=== PATIENT | female | born 1945 | race Caucasian/White ===

== ENCOUNTER 2018-06-02 05:22 | Emergency (ER) | payer MEDICARE, OTHER ==
[~2018-06-02] VITALS: Ht 167.6 cm; Wt 86.2 kg
[~2018-06-02 05:22] MED LIST: ADVIL200 M1 PO; ASPIRIN EC81 MG PO; ATENOLOL25 MG PO; HYDROCHLOROTHIA25 MG PO; NORCO 5-325 TA1 EACH PO; POTASSIUM CHLO10 MEQ PO; PROZAC10 MG PO; ZITHROMAX250 MG PO
--- NOTE | 2018-06-02 12:39 | EKG ---
[facility] [address] [facility] [place], [place] [address] Signed Sinus bradycardia Otherwise normal ECG No previous ECGs available Confirmed by KEMAL MUSA DO ([id number]) on 06/02/2018 12:39:22 PM Electronically Signed By: KEMAL MUSA DO 06/02/18 1239 PATIENT NAME: GIOVANNY FIELDS Electrocardiogram DATE OF : 41 PHYSICIAN: KEMAL MUSA DO REPORT #: [id number] REPORT IS CONFIDENTIAL AND NOT TO BE RELEASED WITHOUT AUTHORIZATION
--- NOTE | 2018-06-02 12:39 | EKG ---
[facility] [address] [facility] [place], [place] [address] Signed Marked sinus bradycardia Abnormal ECG When compared with ECG of 02-JUN-2018 05:26, (Unconfirmed) No significant change was found Confirmed by KEMAL MUSA DO ([id number]) on 06/02/2018 12:39:34 PM Electronically Signed By: KEMAL MUSA DO 06/02/18 1239 PATIENT NAME: GIOVANNY FIELDS Electrocardiogram DATE OF : 41 PHYSICIAN: KEMAL MUSA DO REPORT #: [id number] REPORT IS CONFIDENTIAL AND NOT TO BE RELEASED WITHOUT AUTHORIZATION
== END 2018-06-02 07:20 | disposition home or self-care (01) ==
LOC: ED 05:22
DX: R07.2 Precordial pain (principal); I10 Essential (primary) hypertension; E11.9 Type 2 diabetes mellitus without complications; Z88.5 Allergy status to narcotic agent; Z79.899 Other long term (current) drug therapy; Z79.82 Long term (current) use of aspirin
CPT/HCPCS: 71045; 80053; 84484; 85025; 93005; 93010; 96374; 96375; 99285; J2060; J2270

== ENCOUNTER 2020-02-03 08:46 | Emergency (ER) | payer MEDICARE, OTHER | END 2020-02-03 09:10 | disposition left against medical advice (07) | LOC: ED 08:46 | DX: Z53.21 Procedure and treatment not carried out due to patient leaving prior to being seen by health care provider (principal) ==

== ENCOUNTER 2020-04-20 12:18 | Emergency (ER) | payer MEDICARE, OTHER ==
[~2020-04-20] VITALS: Ht 167.6 cm; Wt 86.2 kg
== END 2020-04-20 15:17 | disposition home or self-care (01) ==
LOC: ED 12:18
DX: R04.0 Epistaxis (principal); I10 Essential (primary) hypertension; Z86.73 Personal history of transient ischemic attack (TIA), and cerebral infarction without residual deficits; E11.9 Type 2 diabetes mellitus without complications; Z88.5 Allergy status to narcotic agent; Z79.899 Other long term (current) drug therapy; Z79.82 Long term (current) use of aspirin
CPT/HCPCS: 30903; 85025; 99283-25

== ENCOUNTER 2020-04-25 09:00 | Emergency (ER) | payer MEDICARE, OTHER ==
[~2020-04-25] VITALS: Ht 167.6 cm; Wt 88.5 kg
[~2020-04-25 09:00] MED LIST changes: +FENOFIBRATE160 MG PO; +LISINOPRIL40 MG PO
--- OUTSIDE RECORDS SUMMARY | 2020-04-25 09:02 | XMS ---
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 Details: LWBS CRITERIA MET - [facility] - 2 Visits in 30 Days CARE PROVIDERS There are no care providers on record at this time. Timothy has no Care Guidelines for this patient. E.DMamta V[facility] (12 MO.) [facility] TOTAL 5 NOTE: Visits indicate total known visits. ED/UCC VISIT TRACKING (12 MO.) 04/25/2020 09:01 [facility] [place] TYPE: Emergency COMPLAINT: - NOSE BLEED 04/24/2020 08:[address] [facility] [place] TYPE: Emergency COMPLAINT: - NOSE BLEED 04/20/2020 12:[address] [facility] [place] [place] TYPE: Emergency COMPLAINT: - NOSE BLEED DIAGNOSES: - Type 2 diabetes mellitus without complications - watermaster (current) use of aspirin - Other termite control technician (current) drug therapy - Epistaxis - Allergy status to narcotic agent status - Essential (primary) hypertension - Personal history of transient ischemic attack (TIA), and cere 02/03/2020 10:10 [facility] [place] TYPE: Emergency DIAGNOSES: - Strain of muscle, fascia and tendon at neck level, initial en - fall, head/neck pain - Unspecified injury of head, initial encounter - Closed Head Injury Without Loc 02/03/2020 08:[address] [facility] [place] TYPE: Emergency COMPLAINT: - HEAD INJURY DIAGNOSES: - Procedure and treatment not carried out due to patient leavin - Procedure and treatment not carried out due to patient leavin INPATIENT VISIT TRACKING (12 MO.) No inpatient visits to display in this time frame [email or web address]
[2020-04-25] MEDS ORDERED: NORCO 5-325 TA1 EACH PO (12:03)
== END 2020-04-25 12:16 | disposition home or self-care (01) ==
LOC: ED 09:00
DX: R04.0 Epistaxis (principal); I10 Essential (primary) hypertension; Z86.73 Personal history of transient ischemic attack (TIA), and cerebral infarction without residual deficits; E11.9 Type 2 diabetes mellitus without complications; Z88.5 Allergy status to narcotic agent; Z79.899 Other long term (current) drug therapy
CPT/HCPCS: 30903; 99283-25

== ENCOUNTER 2020-08-19 07:17 | Emergency (ER) | payer MEDICARE, OTHER ==
[~2020-08-19] VITALS: Ht 167.6 cm; Wt 88.5 kg
[~2020-08-19 07:17] MED LIST changes: -PROZAC10 MG PO; +PROZAC20 MG PO
--- OUTSIDE RECORDS SUMMARY | 2020-08-19 07:18 | XMS ---
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 Details: LWBS CRITERIA MET - [facility] - 2 Visits in 30 Days CARE PROVIDERS BRUNO CAMACHO [facility] 04/26/2020-Current PHONE: [phone] Timothy has no Care Guidelines for this patient. Care History Medical/Surgical 04/26/2020 [facility] - Patient is currently established with [facility]. If patient is seen in the ED during business hours. Please contact CHWs at [facility]. Care Recommendation: If this patient has had 5 or more Emergency Department visits in the last 12 months.\T\nbsp; Patient will require education on the scope and purpose of the ED as an acute care provider not a Primary Care Provider and should not be utilized for chronic conditions.\T\nbsp; These are guidelines and the provider should exercise clinical judgment when providing care. E.D. VISIT COUNT (12 MO.) [facility] TOTAL 7 NOTE: Visits indicate total known visits. ED/UCC VISIT TRACKING (12 MO.) 08/19/2020 07:[address] 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 [place] TYPE: Emergency COMPLAINT: - NOSE BLEED DIAGNOSES: - Type 2 diabetes mellitus without complications - Essential (primary) hypertension - Other superintendent container terminal (current) drug therapy - Epistaxis - Allergy status to narcotic agent - Personal history of transient ischemic attack (TIA), and cerebral infarction without residual deficits 04/20/2020 12:[address] [facility] [place] TYPE: Emergency COMPLAINT: - NOSE BLEED DIAGNOSES: - Type 2 diabetes mellitus without complications - superintendent container terminal (current) use of aspirin - Other superintendent container terminal (current) drug therapy - Epistaxis - Allergy status to narcotic agent - Essential (primary) hypertension - Personal history of transient ischemic attack (TIA), and cerebral infarction without residual deficits 02/03/2020 10:10 [facility] [place] TYPE: Emergency DIAGNOSES: - Strain of muscle, fascia and tendon at neck level, initial encounter - fall, head/neck pain - Unspecified injury of head, initial encounter - Closed Head Injury Without Loc 02/03/2020 08:46 OB[facility] [place] TYPE: Emergency COMPLAINT: - HEAD INJURY DIAGNOSES: - Procedure and treatment not carried out due to patient leaving prior to being seen by health care provider - Procedure and treatment not carried out due to patient leaving prior to being seen by health care provider INPATIENT VISIT TRACKING (12 MO.) No inpatient visits to display in this time frame [email or web address]
[2020-08-19] MEDS ORDERED: POTASSIUM CHLO20 ME1 PO (07:24)
[2020-08-19] MEDS ORDERED: CEPHALEXIN500 MG PO (07:25)
[2020-08-19] MEDS ORDERED: CHLORTHALIDONE50 MG PO (08:48)
--- NOTE | 2020-08-19 17:46 | EKG ---
[facility] [address] [facility] [place] [address] Signed Sinus bradycardia with sinus arrhythmia Minimal voltage criteria for LVH, may be normal variant Borderline ECG When compared with ECG of 02-JUN-2018 07:04, No significant change was found Confirmed by KEMAL MUSA DO ([id number]) on 08/19/2020 5:46:21 PM Electronically Signed By: KEMAL MUSA DO 08/19/20 1746 PATIENT NAME: GIOVANNY FIELDS Electrocardiogram DATE OF : 41 PHYSICIAN: KEMAL MUSA DO REPORT #: [id number] REPORT IS CONFIDENTIAL AND NOT TO BE RELEASED WITHOUT AUTHORIZATION
== END 2020-08-19 10:56 | disposition home or self-care (01) ==
LOC: ED 07:17
DX: R07.89 Other chest pain (principal); I10 Essential (primary) hypertension; Z86.73 Personal history of transient ischemic attack (TIA), and cerebral infarction without residual deficits; E11.9 Type 2 diabetes mellitus without complications; Z88.5 Allergy status to narcotic agent; Z79.899 Other long term (current) drug therapy
CPT/HCPCS: 71045; 80053; 83735; 84484; 85025; 93005; 93010; 99285-25; A9270

== ENCOUNTER 2021-04-22 15:25 | Emergency (ER) | payer MEDICARE, OTHER ==
[~2021-04-22] VITALS: Ht 167.6 cm; Wt 89.4 kg
[~2021-04-22 15:25] MED LIST changes: +CEPHALEXIN500 MG PO; +CHLORTHALIDONE50 MG PO; +POTASSIUM CHLO20 ME1 PO
--- OUTSIDE RECORDS SUMMARY | 2021-04-22 15:28 | XMS ---
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 Details: LWBS CRITERIA MET - [facility] - 2 Visits in 30 Days CARE PROVIDERS BRUNO CAMACHO [facility] 04/26/2020-Current PHONE: [phone] Timothy has no Care Guidelines for this patient. Care History Medical/Surgical 04/26/2020 [facility] - Patient is currently established with [facility]. If patient is seen in the ED during business hours. Please contact CHWs at [facility]. Care Recommendation: If this patient has [...] providing care. E.D. V[facility] (12 MO.) [facility] TOTAL 7 NOTE: Visits indicate total known visits. ED/UCC VISIT TRACKING (12 MO.) 04/22/2021 15:[address] [facility] [place] TYPE: Emergency COMPLAINT: - CHEST PAIN 04/16/2021 09:47 [facility] DIAGNOSES: - Shunt problem - Presence of cerebrospinal fluid drainage device - Neck Pain - Headache, unspecified - Headache (Adult - New Onset Or New Symptoms) 08/28/2020 11[facility] DIAGNOSES: - Headache (Adult - Recurrent Or Known Dx Migraines) - Unsteadiness on feet - Presence of cerebrospinal fluid drainage device - Brain shunt failing 08/19/2020 07:17 OB[facility] [place] TYPE: Emergency COMPLAINT: - CHEST PAIN DIAGNOSES: - Other chest pain - Essential (primary) hypertension - Type 2 diabetes mellitus without complications - Other retirement (current) drug therapy - Allergy status to narcotic agent - Personal history of transient ischemic attack (TIA), and cerebral infarction without residual deficits 08/16/2020 20:43 [facility] DIAGNOSES: - Neck/head pain,having a shunt issue,slurred speech - Neck/head pain,having a shunt issue - Ventriculoperitoneal Pole Framer Shunt Malfunction - Presence of cerebrospinal fluid drainage device - Headache, unspecified 04/25/2020 09:01 OB[facility]NA [place] TYPE: Emergency COMPLAINT: - NOSE BLEED DIAGNOSES: - Epistaxis - Personal history of transient ischemic attack (TIA), and cerebral infarction without residual deficits - Essential (primary) hypertension - Allergy status to narcotic agent - Other tank terminal gauger (current) drug therapy - Type 2 diabetes mellitus without complications 04/24/2020 08:54 OB[facility] [place] TYPE: Emergency COMPLAINT: - NOSE BLEED DIAGNOSES: - Type 2 diabetes mellitus without complications - Essential (primary) hypertension - Other tank terminal gauger (current) drug therapy - Epistaxis - Allergy status to narcotic agent - Personal history of transient ischemic attack (TIA), and cerebral infarction without residual deficits INPATIENT VISIT TRACKING (12 MO.) 09/02/2020 07:41 [facility] [place] TYPE: Surgical Services DIAGNOSES: - Obstructive hydrocephalus [email or web address]
--- NOTE | 2021-04-24 18:04 | EKG ---
[facility] [address] [facility] [place] [address] Signed Sinus bradycardia Left ventricular hypertrophy with repolarization abnormality Abnormal ECG When compared with ECG of 31-AUG-2020 08:33, No significant change was found Confirmed by UYEN CONTE MD ([id number]) on 04/24/2021 6:04:06 PM Electronically Signed By: UYEN CONTE MD 04/24/21 1804 PATIENT NAME: GIOVANNY FIELDS Electrocardiogram DATE OF : 41 PHYSICIAN: UYEN CONTE MD REPORT #: [id number] REPORT IS CONFIDENTIAL AND NOT TO BE RELEASED WITHOUT AUTHORIZATION
--- NOTE | 2021-04-24 18:08 | EKG ---
[facility] [address] [place], [place] [address] Signed Sinus bradycardia Otherwise normal ECG When compared with ECG of 22-APR-2021 15:34, (Unconfirmed) No significant change was found Confirmed by UYEN CONTE MD ([id number]) on 04/24/2021 6:08:28 PM Electronically Signed By: UYEN CONTE MD 04/24/21 1808 PATIENT NAME: GIOVANNY FIELDS Electrocardiogram DATE OF : 41 PHYSICIAN: UYEN CONTE MD REPORT #: [id number] REPORT IS CONFIDENTIAL AND NOT TO BE RELEASED WITHOUT AUTHORIZATION
== END 2021-04-22 22:58 | disposition short-term general hospital (02) ==
LOC: ED 15:25
DX: I21.4 Non-ST elevation (NSTEMI) myocardial infarction (principal); I10 Essential (primary) hypertension; Z86.73 Personal history of transient ischemic attack (TIA), and cerebral infarction without residual deficits; E78.00 Pure hypercholesterolemia, unspecified; Z90.49 Acquired absence of other specified parts of digestive tract; Z88.5 Allergy status to narcotic agent; Z79.899 Other long term (current) drug therapy
CPT/HCPCS: 71045; 80053; 83735; 84484; 85025; 85730; 93005; 93010; 96374; 99285-25; C9803; J1644; U0003

== ENCOUNTER 2021-11-25 10:54 | Emergency (ER) | payer MEDICARE, OTHER ==
[~2021-11-25] VITALS: Ht 167.6 cm; Wt 89.4 kg
--- OUTSIDE RECORDS SUMMARY | 2021-11-25 10:58 | XMS ---
PreManage Notification: GIOVANNY FIELDS Security Education Courses Sales Representative Events No recent Security Events currently on file CRITERIA MET - [facility] - Has Care Guidelines CARE PROVIDERS BRUNO OTERO [facility] 04/26/2020-Current PHONE: [phone] Guidelines Source: [facility] Guidelines Date: 04/25/2021 Other Information: Patient has cardio visit with PCP Dr. Otero on 04/27/2021. Care History Medical/Surgical 04/26/2020 [facility] - Patient is currently established with [facility]. If patient is seen in the ED during business hours. Please contact CHWs at [facility]. Care Recommendation: If this patient has [...] providing care. E.D. VISIT COUNT (12 MO.) 1 [facility] 2 [facility] [place] TOTAL 4 NOTE: Visits indicate total known visits. ED/UCC VISIT TRACKING (12 MO.) 11/25/2021 10:55 OBINNA [place]e TYPE: Emergency COMPLAINT: - L ARM INJURY 05/08/2021 18:09 Priyanka [place] TYPE: Emergency COMPLAINT: - Chest Pain_CHEST PAIN 04/22/2021 15:25 [place] TYPE: Emergency COMPLAINT: - CHEST PAIN DIAGNOSES: - Other chest pain - Essential (primary) hypertension - Pure hypercholesterolemia, unspecified - Personal history of transient ischemic attack (TIA), and cerebral infarction without residual deficits - Allergy status to narcotic agent - Acquired absence of other specified parts of digestive tract - Non-ST elevation (NSTEMI) myocardial infarction - 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 [place] TYPE: General Medicine DIAGNOSES: - Cervicalgia - Non-ST elevation (NSTEMI) myocardial infarction - NSTEMI [email or web address]
== END 2021-11-25 13:04 | disposition home or self-care (01) ==
LOC: ED 10:54
DX: S63.502A Unspecified sprain of left wrist, initial encounter (principal); I10 Essential (primary) hypertension; Z86.73 Personal history of transient ischemic attack (TIA), and cerebral infarction without residual deficits; E78.00 Pure hypercholesterolemia, unspecified; Z88.5 Allergy status to narcotic agent; Z79.899 Other long term (current) drug therapy; W18.30XA Fall on same level, unspecified, initial encounter
CPT/HCPCS: 73110; 99283-25; A9270

== ENCOUNTER 2022-03-12 00:48 | Emergency (ER) | payer MEDICARE, OTHER ==
[~2022-03-12] VITALS: Ht 167.6 cm; Wt 89.4 kg
--- NOTE | ~2022-03-12 | EKG ---
[facility] [address] [facility] [place], [place] [address] Draft EK completed, results pending confirmation PATIENT NAME: KAMILAH FIELDSNERY TREVINOE Electrocardiogram DATE OF : 41 PHYSICIAN: PRELIMINARY REPORT #: [id number] REPORT IS CONFIDENTIAL AND NOT TO BE RELEASED WITHOUT AUTHORIZATION
--- OUTSIDE RECORDS SUMMARY | 2022-03-12 00:50 | XMS ---
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 Otero on 04/27/2021. Care History Medical/Surgical 04/26/2020 [facility] - Patient is currently established with [facility]. If patient is seen in the ED during business hours. Please contact CHWs at [facility]. Care Recommendation: If this patient has had [...] E.D. VISIT COUNT (12 MO.) 1 [facility] 2 [facility]NA [facility] TOTAL 7 NOTE: Visits indicate total known visits. ED/UCC VISIT TRACKING (12 MO.) 03/12/2022 00:48 [place] TYPE: Emergency COMPLAINT: - SHORTNESS OF BREATH 03/10/2022 10:35 [place] TYPE: Emergency COMPLAINT: - FLU SYMPTOMS 11/28/2021 16:45 [facility] [place] TYPE: Emergency DIAGNOSES: - Unspecified multiple injuries, initial encounter - Fall - Unspecified fall, initial encounter 11/25/2021 10:55 OBINNA [place] TYPE: Emergency COMPLAINT: - L ARM INJURY DIAGNOSES: - Pure hypercholesterolemia, unspecified - Essential (primary) hypertension - Unspecified sprain of left wrist, initial encounter - Allergy status to narcotic agent - Personal history of transient ischemic attack (TIA), and cerebral infarction without residual deficits - Pain in left wrist - Fall on same level, unspecified, initial encounter - Other simonizer (current) drug therapy 05/08/2021 18:09 Priyanka [place] TYPE: Emergency COMPLAINT: - Chest Pain_CHEST PAIN 04/22/2021 15:25 [facility] [place] TYPE: Emergency COMPLAINT: - CHEST PAIN DIAGNOSES: - Other chest pain - Essential (primary) hypertension - Contact with and (suspected) exposure to COVID-19 - Pure hypercholesterolemia, unspecified - Personal history of transient ischemic attack (TIA), and cerebral infarction without residual deficits - Allergy status to narcotic agent - Acquired absence of other specified parts of digestive tract - Non-ST elevation (NSTEMI) myocardial infarction - Other simonizer (current) drug therapy 04/16/2021 09:47 [facility] [place] TYPE: Emergency DIAGNOSES: - Shunt problem - Presence of cerebrospinal fluid drainage device - Neck Pain - Headache, unspecified - Headache (Adult - New Onset Or New Symptoms) INPATIENT VISIT TRACKING (12 MO.) 04/23/2021 01:40 [facility] [place] TYPE: General Medicine DIAGNOSES: - Cervicalgia - Non-ST elevation (NSTEMI) myocardial infarction - NSTEMI [email or web address]
[2022-03-12] MEDS ORDERED: FUROSEMIDE20 MG PO (01:26)
[2022-03-12] MEDS ORDERED: PREDNISONE20 MG PO (02:22)
[2022-03-12] MEDS ORDERED: BENZONATATE100 MG PO (02:23)
== END 2022-03-12 03:00 | disposition home or self-care (01) ==
LOC: ED 00:48
DX: J40 Bronchitis, not specified as acute or chronic (principal); Z20.822 Contact with and (suspected) exposure to COVID-19; I10 Essential (primary) hypertension; E78.00 Pure hypercholesterolemia, unspecified; Z88.5 Allergy status to narcotic agent; Z79.899 Other long term (current) drug therapy
CPT/HCPCS: 36415; 71045; 80053; 83735; 83880; 84484; 85025; 87502; 93005; 93010; 94640; 99285-25; A9270; C9803; U0003

== ENCOUNTER 2023-05-13 10:41 | Emergency (ER) | payer MEDICARE, OTHER ==
[~2023-05-13] VITALS: Ht 167.6 cm; Wt 86.6 kg
[~2023-05-13 10:41] MED LIST changes: +AMLODIPINE BESY10 MG PO; +ASPIRIN81 MG PO; +BENZONATATE100 MG PO; +CO Q-10200 MG PO; +D3 DOTS50 MCG PO; +FISH OIL 1,201200 MG PO; +FUROSEMIDE20 MG PO; +NITROSTAT0.4 MG SL; +PREDNISONE20 MG PO; +ZETIA10 MG PO
--- OUTSIDE RECORDS SUMMARY | 2023-05-13 10:43 | XMS ---
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 - Patient with suicidal and/or homicidal ideations eloped. - Patient eloped with IV in place. Details: PATIENT LWBS CRITERIA MET - [facility] - 2 Visits in 30 Days CARE PROVIDERS BRUNO OTERO [facility] 04/26/2020-Current PHONE: Unknown Guidelines Source: [facility] Guidelines Date: 04/25/2021 Other Information: Patient has cardio visit with PCP Dr. Otero on 04/27/2021. Care History Medical/Surgical 04/26/2020 [facility] - Patient is currently established with [facility]. If patient is seen in the ED during business hours. Please contact CHWs at [facility]. Care Recommendation: If this patient has [...] care. E.D. VISIT COUNT (12 MO.) 2 [facility] TOTAL 4 NOTE: Visits indicate total known visits. ED/UCC VISIT TRACKING (12 MO.) 05/13/2023 10:42 [place]NA [place] TYPE: Emergency COMPLAINT: - BACK PAIN 05/11/2023 15:01 [facility] [place] ([place]) TYPE: Emergency DIAGNOSES: - Bacterial infection, unspecified - Unspecified abdominal pain - Urinary tract infection, site not specified - Back Pain - backpain 10/15/2022 09:[address] [facility] [place] TYPE: Emergency COMPLAINT: - SHORTNESS OF BREATH DIAGNOSES: - Allergy status to narcotic agent - COVID-19 - Essential (primary) hypertension - halfway (current) use of aspirin - halfway (current) use of systemic steroids - Other silk spooler (current) drug therapy - Pure hypercholesterolemia, unspecified - Shortness of breath 07/24/2022 11:11 [facility] TYPE: Emergency DIAGNOSES: - Dizziness and giddiness - Presence of cerebrospinal fluid drainage device - Unspecified visual disturbance - Ventriculoperitoneal Industrial Technology Education Teacher Shunt Malfunction INPATIENT VISIT TRACKING (12 MO.) No inpatient visits to display in this time frame [email or web address]
[2023-05-13 11:58] LABS: BILIRUBIN, URINE NEGATIVE (negative); BLOOD/HGB, URINE NEGATIVE (Negative); KETONE, URINE NEGATIVE (Negative); LEUK ESTERASE, URINE NEGATIVE (negative); NITRITE, URINE NEGATIVE (negative); PH, URINE 5.5 (5-7)
[2023-05-13 12:07] LABS: BACTERIA, URINE RARE /hpf (negative); CRYSTALS, URINE NONE SEEN (0-1+); EPITHELIAL CELLS, URINE 0 /lpf (0-1+); RED BLOOD CELLS, URINE 0-1 /hpf (0-5); WHITE BLOOD CELLS, URINE 0-1 /HPF (0-5)
[2023-05-13 12:08] LABS: CASTS, URINE HYALINE 1+ \\lpf; COLLECTION TYPE, URINE CLEAN CATCH; REFLEX CULTURE, URINE No (No)
[2023-05-13] MEDS ORDERED: METHOCARBAMOL750 MG PO (13:44)
[2023-05-13 14:00] VITALS: BP 124/70
== END 2023-05-13 14:02 | disposition home or self-care (01) ==
LOC: ED 10:41
PROVIDERS: Emergency Medicine
DX: M54.50 Low back pain, unspecified (principal); I10 Essential (primary) hypertension; E78.00 Pure hypercholesterolemia, unspecified; Z88.5 Allergy status to narcotic agent; Z79.899 Other long term (current) drug therapy; Z79.82 Long term (current) use of aspirin
CPT/HCPCS: 72100; 81001; 99284-25

== ENCOUNTER 2023-08-23 10:45 | Day surgery (SDC) | payer MEDICARE, OTHER ==
[~2023-08-23] VITALS: Ht 167.6 cm; Wt 87.0 kg
[~2023-08-23 10:45] MED LIST changes: +CELEBREX100 MG PO; +CINNAMON500 MG PO; +LIPITOR10 MG PO; +METHOCARBAMOL750 MG PO
[2023-08-23 11:17] VITALS: BP 107/65
--- NOTE | 2023-08-23 13:27 | NUR ---
08/23/23 1326 Sheets,Audelia 1322 PT ARRIVED TO PACU ON 2L VIA NC, PT WOKE TO VERBAL STIMULI AND EASILY FALLS BACK TO SLEEP. PT ENCOURAGED TO PASS GAS/AIR.
[2023-08-23 14:09] VITALS: BP 105/63
--- NOTE | 2023-08-23 14:34 | OR ---
[facility] [address] [place], [place] [address] Signed DATE OF OPERATION: 08/23/2023 SURGEON: Stephania Williamson MD PREOPERATIVE DIAGNOSES: Known history of diverticulosis, left lower abdominal pain and constipation. POSTOPERATIVE DIAGNOSES: 1. Profound sigmoid and left-sided diverticulosis. 2. Mild inflammation right colon transverse and left colon. PROCEDURE: Total colonoscopy to cecum with intubation of ileum and biopsies. ANESTHESIA: Intravenous sedation; fentanyl 125 mcg and Versed 6 mg. INDICATION: This is a 77-year-old white woman is a patient of Dr. Otero, who last underwent colonoscopy greater than 20 years ago. She was said to have diverticula at that time. She has had complaints of left lower abdominal pain and constipation. She used an [id number] stool softener. She says that it does improve things. She has had no blood per rectum and has no family history of colon cancer. She is admitted at this time to undergo colonoscopy to better characterize her problem. She understands the risk of bleeding, infection, and perforation. FINDINGS: The prep was surprisingly good. Complete colonoscopy was undertaken to the cecum with full intubation of the cecum and intubation of the ileum. There was a reticular inflammatory appearance of the right colon transverse and left colon which is most typical of overdistention, but she really did not have excessive overdistention of the colon so far as could be told. She did have profound diverticular change of the sigmoid and left colon, it stents into the remaining colon to a lesser degree. There is no evidence of polyps or cancer and certainly no stricture. DESCRIPTION OF PROCEDURE: The patient was brought to the endoscopy suite and placed in the lateral decubitus position, given intravenous sedation to the point of slurred speech and nystagmus. Digital rectal examination was normal. Electronically Signed By: STEPHANIA WILLIAMSON MD 08/23/23 1434 PATIENT NAME: GIOVANNY FIELDS OPERATIVE REPORT DATE OF : 41 REPORT #: [id number] PHYSICIAN: STEPHANIA WILLIAMSON MD PCP: VILMA OTERO MD REPORT IS CONFIDENTIAL AND NOT TO BE RELEASED WITHOUT AUTHORIZATION [facility] [address] [place], [place] [address] Signed An Olympus video colonoscope was passed in the rectum and manipulated throughout the colon noting profound diverticular change of the sigmoid. Care and caution were taken in advancing the scope through this area, which was somewhat challenging, but the scope passed beyond this and ultimately to the cecum without problem. The ileocecal valve and appendiceal orifice were normal. The ileum was intubated and the ileal mucosa appeared normal. Biopsies were obtained nevertheless. The scope was withdrawn. Biopsies taken of the cecum as she had a fine reticular network of capillary suggestive of chronic inflammation, though more likely this is related to distention and of no clinical significance really. The scope was withdrawn throughout the colon and biopsies taken of the transverse colon and left colon as well as the rectum. Retroflexed view was normal. The scope was removed and the patient was taken to the recovery room in good condition. CONCLUDING DIAGNOSES: 1. Extensive diverticulosis, no doubt accounting for her symptoms. 2. Mild low-grade inflammatory change of uncertain significance. PLAN: We will recommend MiraLAX one scoop daily by mouth as well as Citrucel or Metamucil one scoop powder daily. She will return to the ongoing care of Dr. Otero. MD JAMES Lopez/KRISTIANL /[id number] cc: Vilma Otero MD Copies: ~ Electronically Signed By: STEPHANIA WILLIAMSON MD 08/23/23 1434 PATIENT NAME: GUADALUPEGIOVANNY RODRIGUEZ OPERATIVE REPORT DATE OF : 41 REPORT #: [id number] PHYSICIAN: STEPHANIA WILLIAMSON MD PCP: VILMA OTERO MD REPORT IS CONFIDENTIAL AND NOT TO BE RELEASED WITHOUT AUTHORIZATION
--- NOTE | 2023-08-28 10:18 | PATH ---
[facility] [address] [facility], [place] [address] Signed SPECIMEN(S): A CECUM BIOPSY SPECIMEN(S): B ILEUM BIOPSY SPECIMEN(S): C HEPATIC FLEXURE BIOPSY SPECIMEN(S): D SPLENIC FLEXURE BIOPSY SPECIMEN(S): E RECTUM BIOPSY SPECIMEN SOURCE: A. CECUM BIOPSY B. ILEUM BIOPSY C. HEPATIC FLEXURE BIOPSY D. SPLENIC FLEXURE BIOPSY E. RECTUM BIOPSY CLINICAL HISTORY: Chronic constipation, diverticulosis FINAL PATHOLOGIC DIAGNOSIS: A. Cecum, biopsy: - Colonic mucosa with no significant pathologic changes B. Ileum, biopsy: - Small bowel mucosa with no significant pathologic changes C. Colon, hepatic flexure, biopsy: - Colonic mucosa with no significant pathologic changes D. Colon, splenic flexure, biopsy: - Colonic mucosa with no significant pathologic changes E. Rectum, biopsy: - Colonic mucosa with no significant pathologic changes BRP MICROSCOPIC EXAMINATION: Histologic sections of all submitted blocks are examined by light microscopy. These findings, together with the gross examination, support the pathologic diagnosis. GROSS DESCRIPTION: A. The specimen, labeled and designated "Kareen Taylor " and designated on the requisition "colon, cecum biopsy," is received in formalin and consists of two sanabria soft tissue fragments measuring 0.4 cm, both specimens are submitted entirely in (A1). B. The specimen, labeled and designated "AmanuelfarazKareen oro, " and designated on the requisition "ileum (NOS) biopsy," is received in formalin and consists of two PATIENT NAME: GIOVANNY TAYLOR PATHOLOGY DATE OF : 41 REPORT #: [id number] PHYSICIAN: BETHANY PATEL PCP: BRUNO CAMACHO MD REPORT IS CONFIDENTIAL AND NOT TO BE RELEASED WITHOUT AUTHORIZATION [facility] [address] [place], [place] [address] Signed sanabria soft tissue fragments measuring 0.3 cm, all specimens are submitted entirely in (B1). C. The specimen, labeled and designated "Kareen Taylor, " and designated on the requisition "colon, hepatic flexure biopsy," is received in formalin and consists of four sanabria soft tissue fragments measuring 0.2 to 0.4 cm, all specimens are submitted entirely in (C1). D. The specimen, labeled and designated "Claudia J, " and designated on the requisition "colon, splenic flexure biopsy," is received in formalin and consists of two saanbria soft tissue fragments measuring 0.4 to 0.5 cm, both specimens are submitted entirely in (D1). E. The specimen, labeled and designated "Kareen Taylor, " and designated on the requisition "colon, rectum biopsy," is received in formalin and consists of one sanabria soft tissue fragment measuring 0.4 cm, the specimen is submitted entirely in (E1). MMA (under the direct supervision of a pathologist) The Gross Description was prepared using a voice recognition system. The report was reviewed for accuracy; however, sound-alike word errors, addition and/or deletions may occur. If there is any question about this report, please contact Client Services. ADDITIONAL NOTES: Immunohistochemical and/or in situ hybridization studies if performed in this case included appropriate positive controls that reacted as expected. This test was developed and its performance characteristics determined by [facility]. It has not been cleared or approved by the U.S. Food and Drug Administration. The FDA has determined that such clearance or approval is not necessary. This test is used for clinical purposes. It should not be regarded as investigational or for research. [facility] is certified under the Clinical Laboratory Improvement Amendments of 1988 (CLIA) as qualified to perform high complexity clinical laboratory testing. PERFORMING LABORATORY: Technical component was performed by [facility], [address] [place] [id number] (CLIA# [id number]). Professional interpretation was performed by [facility], [address] [place] [id number] (CLIA#: [id number]). Diagnostician: Abebe Llamas MD Pathologist PATIENT NAME: GIOVANNY TAYLOR PATHOLOGY DATE OF : 41 REPORT #: [id number] PHYSICIAN: BETHANY PATEL PCP: BRUNO CAMACHO MD REPORT IS CONFIDENTIAL AND NOT TO BE RELEASED WITHOUT AUTHORIZATION [facility] [address] [place] [address] [place], [place] [address] Signed Electronically Signed 08/28/2023 Copies: ~ PATIENT NAME: GIOVANNY TAYLOR PATHOLOGY DATE OF : 41 REPORT #: [id number] PHYSICIAN: BETHANY PATEL PCP: BRUNO CAMACHO MD REPORT IS CONFIDENTIAL AND NOT TO BE RELEASED WITHOUT AUTHORIZATION
== END 2023-08-23 14:26 | disposition home or self-care (01) ==
LOC: OPS 10:45 → DS 10:45 → OPS 12:15 → DS 13:45 → OPS 13:45
PROVIDERS: ATTEND Surgery
PROC: 0DBE8ZX Excision of Large Intestine, Via Natural or Artificial Opening Endoscopic, Diagnostic (ICD-10-PCS; principal; 2023-08-23 12:15)
DX: K57.30 Diverticulosis of large intestine without perforation or abscess without bleeding (principal); K52.9 Noninfective gastroenteritis and colitis, unspecified; K59.09 Other constipation; Z83.79 Family history of other diseases of the digestive system; Z98.2 Presence of cerebrospinal fluid drainage device; I25.2 Old myocardial infarction; I10 Essential (primary) hypertension; Z88.5 Allergy status to narcotic agent; Z79.899 Other long term (current) drug therapy
CPT/HCPCS: 88305; 99153; G0500; J2250; J3010; J7121

== ENCOUNTER 2024-02-20 06:52 | Emergency (ER) | payer MEDICARE, OTHER ==
[~2024-02-20] VITALS: Ht 167.6 cm; Wt 87.0 kg
[2024-02-20 07:08] LABS: BASOPHILS 0.7 % (0-2); HEMATOCRIT 50.1 % (35.0-50.0); HEMOGLOBIN 16.8 g/dL (12.0-18.0); LYMPHOCYTES 28.9 % (24-44); MCHC 33.5 g/dl (30-36); MCV 89.6 fl (81-99); MONOCYTES 10.1 % (0-12); NEUTROPHILS 58.3 % (39-80); PLATELET COUNT 290 K/uL (140-440); RBC 5.59 M/ul (4.3-5.7)
[2024-02-20] MEDS ORDERED: ASPIRIN 81 MG CHEW PO ONE (07:15)
[2024-02-20 07:28] LABS: ALBUMIN/GLOBULIN RATIO 1.18 (1.1-2.4); ANION GAP 11.4 (7-21); BILIRUBIN, TOTAL 0.9 ng/dL (0.2-1.0); BUN/CREATININE RATIO 12.62 (6.0-28.6); CALCIUM 9.7 mg/dL (8.5-10.1); CREATININE, SERUM 1.03 mg/dL (0.55-1.02); MAGNESIUM 1.9 mg/dL (1.8-2.4); POTASSIUM 3.4 mmol/L (3.5-5.1); PROTEIN, TOTAL 7.4 g/dL (6.4-8.2)
[2024-02-20] MEDS ORDERED: CELECOXIB100 MG PO (07:59)
[2024-02-20 10:20] VITALS: BP 128/70
--- NOTE | 2024-02-20 15:10 | EKG ---
[facility] [address] [facility] [place] [address] Signed Normal sinus rhythm with sinus arrhythmia Normal ECG No previous ECGs available Confirmed by Alessio Ellis ([id number]) on 02/20/2024 3:10:04 PM Electronically Signed By: ALESSIO ELLIS MD 02/20/24 1510 PATIENT NAME: GIOVANNY FIELDS Electrocardiogram DATE OF : 41 PHYSICIAN: ALESSIO ELLIS MD REPORT #: [id number] REPORT IS CONFIDENTIAL AND NOT TO BE RELEASED WITHOUT AUTHORIZATION
== END 2024-02-20 10:22 | disposition home or self-care (01) ==
LOC: ED 06:52
PROVIDERS: Internal Medicine
DX: R07.89 Other chest pain (principal); Z45.41 Encounter for adjustment and management of cerebrospinal fluid drainage device; I10 Essential (primary) hypertension; I25.2 Old myocardial infarction; I69.954 Hemiplegia and hemiparesis following unspecified cerebrovascular disease affecting left non-dominant side; Z88.5 Allergy status to narcotic agent; Z79.899 Other long term (current) drug therapy
CPT/HCPCS: 36415; 70450; 71045; 80053; 83735; 84484; 85025; 93005; 93010; A9270

== ENCOUNTER 2024-03-23 12:52 | Emergency (ER) | payer MEDICARE, OTHER ==
[~2024-03-23] VITALS: Ht 167.6 cm; Wt 88.6 kg
[~2024-03-23 12:52] MED LIST changes: +CELECOXIB100 MG PO
[2024-03-23] MEDS ORDERED: ASPIRIN81 MG PO (14:09)
[2024-03-23] MEDS ORDERED: CEFADROXIL500 MG PO (14:10)
[2024-03-23] MEDS ORDERED: DOXYCYCLINE HY100 MG PO (14:50)
[2024-03-23 14:52] VITALS: BP 137/80
== END 2024-03-23 14:56 | disposition home or self-care (01) ==
LOC: ED 12:52
DX: L03.116 Cellulitis of left lower limb (principal); I10 Essential (primary) hypertension; I25.2 Old myocardial infarction; Z88.5 Allergy status to narcotic agent; Z79.899 Other long term (current) drug therapy; Z79.82 Long term (current) use of aspirin
CPT/HCPCS: 99283

== ENCOUNTER 2024-10-16 18:23 | Emergency (ER) | payer MEDICARE, OTHER ==
[~2024-10-16] VITALS: Ht 167.6 cm; Wt 85.0 kg
[~2024-10-16 18:23] MED LIST changes: +CEFADROXIL500 MG PO; +DOXYCYCLINE HY100 MG PO
[2024-10-16 18:47] LABS: BASOPHILS 0.9 % (0-2); EOSINOPHILS 2.3 % (0-6); HEMATOCRIT 46.5 % (35.0-50.0); LYMPHOCYTES 28.2 % (24-44); MCH 30.1 (27-36); MCHC 34.5 g/dl (30-36); MCV 87.4 fl (81-99); MONOCYTES 11.2 % (0-12); NEUTROPHILS 57.4 % (39-80); PLATELET COUNT 322 K/uL (140-440); RBC 5.32 M/ul (4.3-5.7); RDW 14.4 (10.5-15.0)
[2024-10-16 19:00] LABS: PARTIAL THROMBOPLASTIN TIME 26.5 Sec (22.9-41.3)
[2024-10-16 19:01] LABS: ALBUMIN 3.6 g/dL (3.4-5.0); ANION GAP 11.8 (7-21); BILIRUBIN, TOTAL 0.6 mg/dL (0.2-1.0); BUN/CREATININE RATIO 13.33 (6.0-28.6); CALCIUM 9.8 mg/dL (8.5-10.1); CREATININE, SERUM 0.9 mg/dL (0.55-1.02); INR 0.91 (0.80-1.30); POTASSIUM 3.8 mmol/L (3.5-5.1); PROTEIN, TOTAL 7.2 g/dL (6.4-8.2); PROTIME 12.2 Sec (11.2-14.2)
[2024-10-16] MEDS ORDERED: HYDROCODON-ACE1 EA10 PO (19:07)
[2024-10-16 21:07] VITALS: BP 125/83
== END 2024-10-16 21:07 | disposition home or self-care (01) ==
LOC: ED 18:23
PROVIDERS: Emergency Medicine
DX: R29.818 Other symptoms and signs involving the nervous system (principal); I10 Essential (primary) hypertension; I25.2 Old myocardial infarction; I69.954 Hemiplegia and hemiparesis following unspecified cerebrovascular disease affecting left non-dominant side; Z88.5 Allergy status to narcotic agent; Z79.899 Other long term (current) drug therapy
CPT/HCPCS: 36415; 70450; 70496; 70498; 71045; 80053; 80307; 84484; 85025; 85610; 85730; 99285-25; Q9967